=== PATIENT | female | born 1960 | race Caucasian/White ===

== ENCOUNTER → 2023-11-08 15:22 | Outpatient (REF) | payer OTHER, SELFPAY | LOC: WDC 15:22 | PROVIDERS: ATTENDING PHYSICIAN Physician Assistant Medical; FAMILY PHYSICIAN Internal Medicine | DX: Z12.31 Encounter for screening mammogram for malignant neoplasm of breast (principal) | CPT/HCPCS: 77063; 77067 ==

== ENCOUNTER → 2023-11-16 10:02 | Outpatient (REF) | payer OTHER, SELFPAY | LOC: WDC 10:02 | PROVIDERS: ATTENDING PHYSICIAN Physician Assistant Medical; FAMILY PHYSICIAN Internal Medicine | DX: R92.8 Other abnormal and inconclusive findings on diagnostic imaging of breast (principal) | CPT/HCPCS: 76642 ==

== ENCOUNTER → 2023-11-18 07:42 | Outpatient (REF) | payer OTHER, SELFPAY ==
--- NOTE | 2023-11-18 11:31 | OID.BR.INTR ---
OID Breast Navigator - Initial
- -
Did not meet patient at time of biopsy. Will follow up per protocol.
== END ==
LOC: WDC 07:42
PROVIDERS: ATTENDING PHYSICIAN Physician Assistant Medical
DX: N63.11 Unspecified lump in the right breast, upper outer quadrant (principal)
CPT/HCPCS: 88305; 19083; 77065; 88341; 88342; 88360; A4648

== ENCOUNTER → 2023-12-09 08:35 | Outpatient (REF) | payer OTHER, SELFPAY | LOC: WDC 08:35 | PROVIDERS: ATTENDING PHYSICIAN Surgery | DX: C50.411 Malignant neoplasm of upper-outer quadrant of right female breast (principal) | CPT/HCPCS: 19285; 38792; 76942; 77065; A4648; A9541 ==

== ENCOUNTER 2023-12-10 06:11 | Day surgery (SDC) | payer OTHER, SELFPAY ==
[2023-12-07 13:14] VITALS: BMI 32.1
[2023-12-07 13:55] LABS: Prealbumin (Transthyretin) 25.1 mg/dl (17.6-36.0)
[2023-12-10] VITALS (7 sets, daily range): BP systolic 83–125; BP diastolic 46–77; BMI 32.1
[2023-12-10] MEDS: TYLENOL 1000 MG PO (07:18)
[2023-12-10 07:21] LABS: Glucose - Point of Care 94 mg/dl (70-99)
[2023-12-10] MEDS: NORMOSOL-R 1000 IV (07:21)
[2023-12-10 07:41] LABS: Hematocrit 35.9 % (37.0-47.0); Hemoglobin 11.7 g/dL (12.0-16.0); Mean Corp Hgb Conc. 32.6 g/dL (33.0-37.0); Mean Corpuscular Hgb 29.3 pg (27.0-31.0); Mean Corpuscular Volume 89.8 fL (81.0-99.0); Mean Platelet Volume 9.5 fL (7.4-10.4); Platelet Count 297 10^3/uL (130-400); Red Cell Dist. Width 13.7 % (11.5-14.5); White Blood Cell Count 9.4 10^3/uL (4.8-10.8)
[2023-12-10 08:02] LABS: ALT (SGPT) 27 U/L (0-35); AST (SGOT) 27 U/L (14-36); Albumin 4.2 g/dl (3.5-5.0); Alkaline Phosphatase 115 U/L (38-126); Blood Urea Nitrogen 19 mg/dl (7-17); Calcium 9.6 mg/dl (8.4-10.2); Carbon Dioxide 25 mmol/L (22-30); Chloride 108 mmol/L (98-107); Estimated Creatinine Clearance 105 ml/min; Glucose 87 mg/dl (70-99); Potassium 4.7 mmol/L (3.5-5.1); Sodium 141 mmol/L (135-145); Total Bilirubin 0.3 mg/dl (0.2-1.3); Total Protein 7.2 g/dl (6.3-8.2); eGFR > 60.00
[2023-12-10 08:18] LABS: Vitamin D, 25-OH*** 90.9 ng/mL (30-80)
--- NOTE | 2023-12-10 09:37 | W.IMMPOSTOP ---
Surgical Immed Post Op Note
-
Primary Surgeon: Chandana
Assisting Surgeon: None
Pre-op Diagnosis: Right breast ca
Post-op Diagnosis: Same
Procedure Performed: Right localized lumpectomy, sentinel lymph node mapping and biopsy
Anesthesia Type: TIVA
Specimen / Cultures: Right lumpectomy, sentinel node, margins
Estimated Blood Loss: 4cc
Complications: None
Operative Findings: Neg node on frozen; mass clip and reflector in specimen
== END 2023-12-10 11:05 | disposition home or self-care (01) ==
LOC: SDS 06:11
PROVIDERS: ATTENDING PHYSICIAN Surgery; FAMILY PHYSICIAN Internal Medicine
DX: C50.411 Malignant neoplasm of upper-outer quadrant of right female breast (principal); N60.21 Fibroadenosis of right breast; Z17.0 Estrogen receptor positive status [ER+]
CPT/HCPCS: 38525; 19301; 88305; 88307; 88332; 36415; 76098; 80053; 82306; 82962; 84134; 85027; 88331; 88342; 93005; A4648

== ENCOUNTER 2024-01-12 14:13 | Emergency (ER) | payer OTHER, SELFPAY ==
[2024-01-12 14:16] VITALS: BMI 31.7
[2024-01-12 14:25] VITALS: BP 112/63
--- NOTE | 2024-01-12 14:25 | ED.GENMED ---
History of Present Illness
General
Chief Complaint: Abdominal Symptoms
Source: patient and ambulance crew
Exam Limitations: none
Time Seen by Provider: 01/12/24 14:24
Nursing documentation reviewed up to this point in time: agreed with
History of Present Illness
History of Present Illness:
63-year-old female with history of HTN, GERD, NIDDM, anxiety/depression presents for sudden onset of upper abdominal cramps, nausea starting 2-1/2 hours ago at work. She had 5 episodes of diarrhea. EMS was called but after the diarrhea she felt
much better and she was going to refuse coming to the emergency room but when EMS arrived, they found her clammy and pale and on their arrival her blood pressure was 87/49 then 79/52, improved greatly after IVF's. She was given Zofran 4 mg IV en
route.
She arrives stating her abdominal pains are completely gone and she still feels a little nauseous. She denies fever or chills. No recent travel. No recent antibiotic use. No known sick contacts.
Diagnosed with stage I breast cancer on 12/10/2023, had a lumpectomy and 1 lymph node removed.
Past History
Past History
ED Past Medical History: Cancer (Recently diagnosed with stage I breast cancer.)
ED Past Surgical History: Gynecological (Lumpectomy right breast, 1 lymph node removed)
Social History
Tobacco: Smoker (Occasionally)
Alcohol: None
Personal: Single
Living: alone
Employment: Employed
Review of Systems
Review of Systems
Allergies reviewed?: Yes
All Other Systems: ROS reviewed and negative except as documented in HPI and ROS
Constitutional: Denies fever or chills
Respiratory: Denies trouble breathing
Cardiac: Denies chest pain or syncope
ABD/GI: Reports abdominal pain, nausea and diarrhea; Denies vomiting, bloody stools or black stools
: Denies dysuria, frequency, difficulty voiding or urgency
Musculoskeletal: Reports no symptoms
Skin: Reports no symptoms
Neurological: Reports no symptoms
Phy Exam
Physical Exam
Physical Exam:
GENERAL: No acute distress. A&Ox3.
CONSTITUTIONAL: Afebrile.
EYES: clear, conjunctivae normal
ENMT: moist mucus membranes, Pharynx nl
RESPIRATORY: Regular respirations, nonlabored, lungs clear.
CARDIOVASCULAR: Regular rate and rhythm, no murmurs, no rubs.
GI: Soft, generally tender, normal BS
MUSCULOSKELETAL: Moves with ease. Well perfused.
SKIN: Warm, dry, pink
PSYCH: Normal mood and affect. Well kept, interactive and appropriate
NEUROLOGIC: Awake, alert and oriented. No focal neurological deficits
Course
Orders/Labs/Results
Orders:
Orders
01/12/24 14:16
IV Insert/Care/Rem.- Treatment PRN
01/12/24 14:23
Complete Blood Count/With Diff Urgent
Comprehensive Metabolic Panel Urgent
Lipase Urgent
01/12/24 15:05
0.9% Sodium Chloride 1000 ml [Nss] 1,000 ml IV BOLUS
01/12/24 15:13
Ondansetron Injectable [Zofran] 4 mg IV NOW STA
01/12/24 15:14
CT Abd/Pel (IV only)-DH only Urgent
Comment:
Reason For Exam: Abdominal cramps, n/v,d
01/12/24 15:17
COVID-19 Antigen Urgent
Source: Nasal Swab
01/12/24 16:47
Urinalysis Reflex To Culture Urgent
Date Specimen was Collected: 01/12/24
Time Specimen was Collected: 16:18
Urine Microscopic Reflex Cult Urgent
01/12/24 17:46
Dicyclomine [Bentyl] 20 mg PO NOW STA
Abnormal Lab Results
01/12/24 01/12/24
14:23 16:47
WBC 23.3 H 10^3/uL
(4.8-10.8)
MCHC 32.9 L g/dL
(33.0-37.0)
Abs Immat Gran (auto) 0.1 H 10^3/uL
(0-0.05)
Absolute Neuts (auto) 19.5 H 10^3/uL
(1.4-6.5)
Absolute Monos (auto) 1.8 H 10^3/uL
(0.1-0.6)
Immature Gran % 0.6 H %
(0-0.5)
Neutrophils % 83.2 H %
(42.2-75.2)
Lymphocytes % 7.2 L %
(20.5-51.1)
BUN 36 H mg/dl
(7-17)
Glucose 110 H mg/dl
(70-99)
Lipase 305 H U/L
(23-300)
Urine Albumin (Reflex) 1+ A
(Neg - Trace)
01/12/24 14:23
01/12/24 14:23
Vital Signs
Initial and Last Documented VS:
Initial Vital Signs
Temp
98.1 F
01/12/24 14:16
Last Documented Vital Signs
Temp Pulse Resp BP Pulse Ox
98.1 F 95 16 114/83 98
01/12/24 14:16 01/12/24 18:04 01/12/24 18:04 01/12/24 18:04 01/12/24 18:04
MDM/Problems Addressed
Differential Diagnosis Includes:
Gastroenteritis viral vs bacterial
MDM/Problems Addressed:
63-year-old female with history of HTN, GERD, NIDDM, anxiety/depression presents for sudden onset of upper abdominal cramps, nausea starting 2-1/2 hours ago at work. She had 5 episodes of diarrhea. EMS was called but after the diarrhea she felt
much better and she was going to refuse coming to the emergency room but when EMS arrived, they found her clammy and pale and on their arrival her blood pressure was 87/49 then 79/52, improved greatly after IVF's. She was given Zofran 4 mg IV en
route.
She arrives stating her abdominal pains are completely gone and she still feels a little nauseous. She denies fever or chills. No recent travel. No recent antibiotic use. No known sick contacts.
Diagnosed with stage I breast cancer on 12/10/2023, had a lumpectomy and 1 lymph node removed.
Afebrile, NAD, VSS
2:45 PM:
CBC: WBC 23.3 most likely reactive
CMP: BUN 36, IV fluids ordered. Otherwise normal
Lipase: No significant elevation
3:10 p.m.
In to re evaluate pt. after taking a drink of water, abdominal cramps started again. Pt requesting a covid test and something for nausea.
CT abd/pelvis w IV only contrast pending
5:30 PM:
UA negative
CT abdomen pelvis with IV only contrast: Radiology report read: No acute finding
Discharge dx: dehydration, diarrhea, gastroenteritis
Patient has had no diarrhea since arrival. She is tolerating p.o. fluids.
Plan: Discharge w rx for Zofran, Bentyl, return instructions discussed.
F/U w PCP if not 100% better Wednesday (5 days)
*Critical Care Note
Total Time (30-74mins, 75-104mins- exclusive of procedures): Not Applicable
ED Attending Note
-
Portions of this chart may have been created with voice recognition software.� Occasional wrong word or��sound alike� substitutions may have occurred due to the inherent limitations of voice recognition software.
Discharge Plan
Departure
Patient Disposition: Home (Routine Discharge)
Date of Disposition: 01/12/24
Time of Disposition: 17:59
Patient with high blood pressure during this ER visit?: No
Condition: Good
Discharge Problem:
Gastroenteritis
Instructions: Diarrhea in teens and adults, Viral gastroenteritis in adults, Dehydration, Adult (DC), Abdominal Pain
Prescriptions:
New
dicyclomine 20 mg tablet
20 mg PO QID PRN (Reason: stomach cramps) Qty: 20 0RF
ondansetron 4 mg tablet,disintegrating
4 mg PO Q8H PRN (Reason: nausea and vomiting) 4 Days Qty: 14 0RF
No Action
metoprolol tartrate 100 MG tablet
100 mg PO DAILY
venlafaxine 150 MG capsule,extended release 24hr
150 mg PO DAILY
bupropion HCl 150 MG tablet extended release 24 hr
150 mg PO DAILY
ergocalciferol (vitamin D2) 50,000 UNITS capsule
1 cap PO WEEKLY
ibuprofen 800 mg Tablet
800 mg PO BID
amlodipine-benazepril 5-20 mg Capsule
1 cap PO DAILY
metformin 500 mg Tablet Extended Release 24 Hr
500 mg PO DAILY
Ozempic 2 mg/dose (8 mg/3 mL) Pen Injector
2 mg SC QWEEK
acetaminophen 500 MG tablet
1,000 mg PO Q6H
Rx Instructions:
Do not exceed >4000 mg daily.
omeprazole 40 mg Capsule,Delayed Release(Dr/Ec)
40 mg PO DAILY
Referrals:
Traci Murphy, [Family Provider] - Follow up in 5-7 days
Activity Restrictions/Additional Instructions:
As we discussed, you are dehydrated, drink at least eight 8 ounce glasses of water/fluid daily
I sent a prescription to your pharmacy for Bentyl for abdominal cramps, as well as Zofran to use as needed for nausea.
See your doctor in 5 to 7 days if you are not 100% better by then
Return here over the weekend if you develop fever above 100.5 that is not relieved with Tylenol or ibuprofen, worsening abdominal pains, worsening diarrhea, bloody diarrhea, vomiting or feeling sicker in any way.
Interventions
Interventions:
*Risk Screen - Suicide Last Done: 01/12/24 14:16
*General Assessment Last Done: 01/12/24 14:16
*Neglect/Abuse Screening Last Done: 01/12/24 14:16
ED- Fall Risk Assessment Last Done: 01/12/24 18:13
*ED COVID-19 Vaccine History Last Done: 01/12/24 14:16
*Nursing Disposition Last Done: 01/12/24 18:13
RS-Tjumfs-Pvrinpfzpt Assessment Last Done: 01/12/24 14:16
Discharge Date and Time
Discharge Date/Time: 01/12/24 18:13
Print Language: PORTUGUESE
[2024-01-12 14:47] LABS: ALT (SGPT) 33 U/L (0-35); AST (SGOT) 30 U/L (14-36); Albumin 4.6 g/dl (3.5-5.0); Alkaline Phosphatase 100 U/L (38-126); Blood Urea Nitrogen 36 mg/dl (7-17); Calcium 9.4 mg/dl (8.4-10.2); Carbon Dioxide 26 mmol/L (22-30); Chloride 107 mmol/L (98-107); Estimated Creatinine Clearance 96 ml/min; Glucose 110 mg/dl (70-99); Lipase 305 U/L (23-300); Potassium 4.1 mmol/L (3.5-5.1); Sodium 141 mmol/L (135-145); Total Bilirubin 0.2 mg/dl (0.2-1.3); Total Protein 7.4 g/dl (6.3-8.2); eGFR > 60.00
[2024-01-12 14:48] LABS: % Basophils 0.3 % (0-2); % Eosinophils 1.1 % (0-6); % Immature Granulocytes 0.6 % (0-0.5); % Lymphocytes 7.2 % (20.5-51.1); % Monocytes 7.6 % (1.7-9.3); % Neutrophils 83.2 % (42.2-75.2); Absolute Basophils 0.1 10^3/uL (0-0.2); Absolute Eosinophils 0.3 10^3/uL (0-0.7); Absolute Immature Granulocytes 0.1 10^3/uL (0-0.05); Absolute Lymphocytes 1.7 10^3/uL (1.2-3.4); Absolute Monocytes 1.8 10^3/uL (0.1-0.6); Absolute Neutrophils 19.5 10^3/uL (1.4-6.5); Hematocrit 39.2 % (37.0-47.0); Hemoglobin 12.9 g/dL (12.0-16.0); Mean Corp Hgb Conc. 32.9 g/dL (33.0-37.0); Mean Corpuscular Hgb 29.3 pg (27.0-31.0); Mean Corpuscular Volume 88.9 fL (81.0-99.0); Mean Platelet Volume 9.7 fL (7.4-10.4); Nucleated Red Blood Cells % 0 %; Platelet Count 364 10^3/uL (130-400); Red Blood Cell Count 4.41 10^6/uL (4.20-5.40); Red Cell Dist. Width 13.8 % (11.5-14.5); White Blood Cell Count 23.3 10^3/uL (4.8-10.8)
[2024-01-12] MEDS: ZOFRAN 4 MG IV (15:17)
[2024-01-12] MEDS: NSS 1000 IV (15:17)
[2024-01-12 15:42] LABS: COVID-19 Antigen Negative (Negative)
[2024-01-12 16:52] LABS: Urine Albumin 1+ (Neg - Trace); Urine Bilirubin Negative (Negative); Urine Character Clear (Clear); Urine Color Yellow; Urine Glucose Negative (Negative); Urine Ketone Negative (Negative); Urine Leukocyte Negative (Negative); Urine Nitrite Negative (Negative); Urine Occult Blood Negative (Negative); Urine Specific Gravity 1.015 (<1.030); Urine Urobilinogen Negative (Neg - 1+)
[2024-01-12 17:01] LABS: Urine Red Blood Cell 0-2 /HPF (0-2); Urine White Cell 0-2 /HPF (0-5)
[2024-01-12] MEDS: BENTYL 20 MG PO (18:03)
[2024-01-12 18:04] VITALS: BP 114/83
== END 2024-01-12 18:13 | disposition home or self-care (01) ==
LOC: EMR 14:13
PROVIDERS: Registered Nurse; EMERGENCY PHYSICIAN Emergency Medicine; FAMILY PHYSICIAN Family Medicine
DX: K52.9 Noninfective gastroenteritis and colitis, unspecified (principal); I10 Essential (primary) hypertension; E11.9 Type 2 diabetes mellitus without complications; K21.9 Gastro-esophageal reflux disease without esophagitis; F17.200 Nicotine dependence, unspecified, uncomplicated; F41.9 Anxiety disorder, unspecified; Z11.52 Encounter for screening for COVID-19
CPT/HCPCS: 99285; 96374; 96361; 74177; 80053; 81003; 81015; 83690; 85025; 87811; Q9967

== ENCOUNTER → 2024-04-17 11:26 | Outpatient (REF) | payer OTHER, SELFPAY | LOC: RAD 11:26 | PROVIDERS: ATTENDING PHYSICIAN Obstetrics & Gynecology Gynecology; FAMILY PHYSICIAN Physician Assistant Medical | DX: N83.202 Unspecified ovarian cyst, left side (principal) | CPT/HCPCS: 76830; 76856 ==

== ENCOUNTER → 2024-07-04 14:12 | Outpatient (REF) | payer OTHER, SELFPAY | LOC: HWRAD 14:12 | PROVIDERS: ATTENDING PHYSICIAN Internal Medicine Hematology & Oncology; FAMILY PHYSICIAN Physician Assistant Medical | DX: C50.411 Malignant neoplasm of upper-outer quadrant of right female breast (principal); M89.49 Other hypertrophic osteoarthropathy, multiple sites | CPT/HCPCS: 77080 ==

== ENCOUNTER → 2024-09-12 07:17 | Outpatient (REF) | payer OTHER, SELFPAY | LOC: HWRAD 07:17 | PROVIDERS: ATTENDING PHYSICIAN Physician Assistant Medical | DX: R22.1 Localized swelling, mass and lump, neck (principal) | CPT/HCPCS: 76536 ==

== ENCOUNTER 2024-09-27 09:38 | Emergency (ER) | payer OTHER, SELFPAY ==
[2024-09-27] VITALS (7 sets, daily range): BP systolic 114–131; BP diastolic 54–88; BMI 31.4
--- NOTE | 2024-09-27 09:43 | ED.GENMED ---
History of Present Illness
<LANCE Croft - Last Filed: 09/28/24 20:18>
General
Chief Complaint: Abdominal Symptoms
Source: patient and ambulance crew
Exam Limitations: none
Time Seen by Provider: 09/27/24 09:43
Nursing documentation reviewed up to this point in time: agreed with
History of Present Illness
History of Present Illness:
Patient is a 64-year-old female with past medical history of breast cancer , htn, niddm who presents to the ER for evaluation. Patient started last evening with an upset stomach and vomited at least 3 times and has had constant diarrhea. She did
call EMS. She does feel very dehydrated. She complains about abdominal cramping but denies any abdominal pain.
She does live alone.
She does not drink alcohol.
Past History
<LANCE Croft - Last Filed: 09/28/24 20:18>
Past History
ED Past Medical History: Cancer (Recently diagnosed with stage I breast cancer.)
ED Past Surgical History: Gynecological (Lumpectomy right breast, 1 lymph node removed)
Social History
Tobacco: Smoker (Occasionally)
Alcohol: None
Personal: Single
Living: alone
Employment: Employed
Review of Systems
<LANCE Croft - Last Filed: 09/28/24 20:18>
Review of Systems
Allergies reviewed?: Yes
All Other Systems: ROS reviewed and negative except as documented in HPI and ROS
Constitutional: Denies fever, fatigue or chills
EENT: Reports no symptoms
Respiratory: Reports no symptoms
Cardiac: Reports no symptoms
ABD/GI: Reports nausea, vomiting and diarrhea; Denies abdominal pain
: Reports no symptoms; Denies flank pain, urgency or discharge
Musculoskeletal: Reports no symptoms
Skin: Reports no symptoms
Neurological: Reports no symptoms
Psychiatric: Reports no symptoms
Phy Exam
<LANCE Croft - Last Filed: 09/28/24 20:18>
General Physical Exam
General Presentation: no apparent distress
General age: appears stated age
General Skin: warm and dry
General Habitus: normal
General Mental: alert
General Hydration: dry mucous membranes
Cardiovascular Exam
Cardiovascular Exam: tachycardia
Pulmonary Exam
Pulmonary Exam: lungs clear and no respiratory distress
Gastrointestinal Exam
Gastrointestinal Exam: non tender and soft
Neurological Exam
Neurological Exam: alert and oriented x3
Musculoskeletal Exam
Musculoskeletal Exam: full ROM
Skin Exam
Skin Exam: normal color and warm/dry
Psychiatric Exam
Psychiatric Exam: normal mood/affect
Course
<LANCE Croft - Last Filed: 09/28/24 20:18>
Orders/Labs/Results
Orders:
Orders
09/27/24 09:43
IV Insert/Care/Rem.- Treatment PRN
0.9% Sodium Chloride 1000 ml [Nss] 1,000 ml IV BOLUS
Dicyclomine HCl [Bentyl] 20 mg IM NOW STA
Ondansetron Injectable [Zofran] 4 mg IV NOW STA
09/27/24 09:44
Electrocardiogram (*1) Urgent
Reason for Study: Tachycardia
EKG- Treatment ONCE
09/27/24 09:51
COVID-19 Antigen Urgent
Source: Nasal Swab
Complete Blood Count/With Diff Urgent
Comprehensive Metabolic Panel Urgent
TSH Reflex To Free T4 Urgent
Influenza A+B Rapid Molecular Urgent
ANNA Source: Nasal Swab
Specimen Description:
09/27/24 11:11
0.9% Sodium Chloride 1000 ml [Nss] 1,000 ml IV BOLUS
Ketorolac [Toradol] 15 mg IV NOW STA
09/27/24 12:02
Urinalysis Reflex To Culture Urgent
Date Specimen was Collected: 09/27/24
Time Specimen was Collected: 11:53
Urine Microscopic Reflex Cult Urgent
09/27/24 13:10
Acetaminophen [Tylenol] 1,000 mg PO NOW STA
09/27/24 13:11
Acetaminophen [Tylenol] 1,000 mg .ROUTE .STK-MED ONE
09/27/24 14:49
Ondansetron Injectable [Zofran] 4 mg .ROUTE .STK-MED ONE
09/27/24 14:52
Ondansetron Injectable [Zofran] 4 mg IV NOW STA
Abnormal Lab Results
09/27/24 09/27/24
09:51 12:02
WBC 12.5 H 10^3/uL
(4.8-10.8)
Absolute Neuts (auto) 11.5 H 10^3/uL
(1.4-6.5)
Absolute Lymphs (auto) 0.5 L 10^3/uL
(1.2-3.4)
Neutrophils % 92.1 H %
(42.2-75.2)
Lymphocytes % 4.3 L %
(20.5-51.1)
BUN 29 H mg/dl
(7-17)
Creatinine 0.5 L mg/dL
(0.6-1.0)
Glucose 141 H mg/dl
(70-99)
Ur Occult Blood Reflex 1+ A
(Negative)
Urine RBC 7-10 A /HPF
(0-2)
Urine Bacteria (Reflex) Few A
(Negative)
Urine Albumin (Reflex) 1+ A
(Neg - Trace)
09/27/24 09:51
09/27/24 09:51
Vital Signs
Initial and Last Documented VS:
Initial Vital Signs
Temp Pulse Resp BP Pulse Ox
98.9 F 130 20 114/76 97
09/27/24 09:39 09/27/24 09:39 09/27/24 09:39 09/27/24 09:39 09/27/24 09:39
Last Documented Vital Signs
Temp Pulse Resp BP Pulse Ox
99.7 F 115 19 131/74 93
09/27/24 13:14 09/27/24 14:30 09/27/24 14:30 09/27/24 15:04 09/27/24 11:14
C D Stripper consulted with Physician
C D Stripper consulted with physician?: Yes
Name of Physician Consulted: Becky
Desirelt;Ayaan Pena, - Last Filed: 09/27/24 13:12>
Orders/Labs/Results
Orders:
Orders
09/27/24 09:43
IV Insert/Care/Rem.- Treatment PRN
0.9% Sodium Chloride 1000 ml [Nss] 1,000 ml IV BOLUS
Dicyclomine HCl [Bentyl] 20 mg IM NOW STA
Ondansetron Injectable [Zofran] 4 mg IV NOW STA
09/27/24 09:44
Electrocardiogram (*1) Urgent
Reason for Study: Tachycardia
EKG- Treatment ONCE
09/27/24 09:51
COVID-19 Antigen Urgent
Source: Nasal Swab
Complete Blood Count/With Diff Urgent
Comprehensive Metabolic Panel Urgent
TSH Reflex To Free T4 Urgent
Influenza A+B Rapid Molecular Urgent
ANNA Source: Nasal Swab
Specimen Description:
09/27/24 11:11
0.9% Sodium Chloride 1000 ml [Nss] 1,000 ml IV BOLUS
Ketorolac [Toradol] 15 mg IV NOW STA
09/27/24 12:02
Urinalysis Reflex To Culture Urgent
Date Specimen was Collected: 09/27/24
Time Specimen was Collected: 11:53
Urine Microscopic Reflex Cult Urgent
09/27/24 13:10
Acetaminophen [Tylenol] 1,000 mg PO NOW STA
09/27/24 13:11
Acetaminophen [Tylenol] 1,000 mg .ROUTE .STK-MED ONE
09/27/24 14:49
Ondansetron Injectable [Zofran] 4 mg .ROUTE .STK-MED ONE
09/27/24 14:52
Ondansetron Injectable [Zofran] 4 mg IV NOW STA
Abnormal Lab Results
09/27/24 09/27/24
09:51 12:02
WBC 12.5 H 10^3/uL
(4.8-10.8)
Absolute Neuts (auto) 11.5 H 10^3/uL
(1.4-6.5)
Absolute Lymphs (auto) 0.5 L 10^3/uL
(1.2-3.4)
Neutrophils % 92.1 H %
(42.2-75.2)
Lymphocytes % 4.3 L %
(20.5-51.1)
BUN 29 H mg/dl
(7-17)
Creatinine 0.5 L mg/dL
(0.6-1.0)
Glucose 141 H mg/dl
(70-99)
Ur Occult Blood Reflex 1+ A
(Negative)
Urine RBC 7-10 A /HPF
(0-2)
Urine Bacteria (Reflex) Few A
(Negative)
Urine Albumin (Reflex) 1+ A
(Neg - Trace)
09/27/24 09:51
09/27/24 09:51
Vital Signs
Initial and Last Documented VS:
Initial Vital Signs
Temp Pulse Resp BP Pulse Ox
98.9 F 130 20 114/76 97
09/27/24 09:39 09/27/24 09:39 09/27/24 09:39 09/27/24 09:39 09/27/24 09:39
Last Documented Vital Signs
Temp Pulse Resp BP Pulse Ox
99.7 F 115 19 131/74 93
09/27/24 13:14 09/27/24 14:30 09/27/24 14:30 09/27/24 15:04 09/27/24 11:14
<LANCE Croft - Last Filed: 09/28/24 20:18>
MDM/Problems Addressed
MDM/Problems Addressed:
Patient is a 64-year-old female who presented with nausea vomiting diarrhea mild abdominal cramping since last night. Patient reports multiple diarrhea episodes she does feel dehydrated on arrival. She presents tachycardic however no acute
distress afebrile. White count very minimally elevated stable HGB. BUN was elevated at 29 with a normal creatinine. Abdomen soft nontender.
Patient received fluids Bentyl and Zofran here feeling better drinking fluids now however arrived tachycardic and despite fluids is persistently tachycardic.
13.10: Patient repeat temp 99.9. Patient was eval by ED physician who examined patient likely viral syndrome and dehydration. Will medicate for Tylenol increased temperature may also be contributing to elevated heart rate.
Patient however is overall nontoxic-appearing and feeling better has tolerated fluids.
<LANCE Croft - Last Filed: 09/28/24 20:18>
*Critical Care Note
Total Time (30-74mins, 75-104mins- exclusive of procedures): Not Applicable
ED Attending Note
<LANCE Croft - Last Filed: 09/28/24 20:18>
-
Portions of this chart may have been created with voice recognition software.� Occasional wrong word or��sound alike� substitutions may have occurred due to the inherent limitations of voice recognition software.
<Ayaan Pena DO - Last Filed: 09/27/24 13:12>
ED Attending Note
Patient seen and examined by attending physician: Yes
I performed the substantive portion of visit, reviewed & personally made and approve the management plan that is documented in note by myself or NEYMAR.: Yes
ED Attending Note:
Patient presents complaining of nausea vomiting diarrhea for the past 24 hours. She has abdominal cramping but no reproducible abdominal pain. No known fever. Patient feels generally weak.
General: Awake, Alert, Oriented X3. No acute distress.
Vitals: unremarkable
Head: Atraumatic
Eyes: Pupils equal, EOMI
Throat: Airway intact, no exudates, dry mucosa
Neck: Trachea midline
Lungs: Clear and equal b/l
Heart: Regular rate, no murmurs
Abd: Soft, Nontender, No pulsatile mass
Neuro: Nonfocal
Skin: Warm, dry, no rash
Extremities: pulses equal b/l, no edema
Patient presents with nausea vomiting diarrhea and crampy abdominal pain. Her abdominal exam is actually benign to palpation. Labs show minimally elevated white blood cell count and prerenal azotemia. Clinically the patient looks quite dry.
Agree with IV fluid, antipyretics and other symptomatic care.
Discharge Plan
Departure
Patient Disposition: Home (Routine Discharge)
Date of Disposition: 09/27/24
Time of Disposition: 14:51
Patient with high blood pressure during this ER visit?: No
Condition: Fair
Covid-19: Not Applicable
Discharge Problem:
Nausea & vomiting, Diarrhea
Instructions: Diarrhea in teens and adults, Clear Liquid Diet, [place] Diet, Nausea and Vomiting, Adult (DC)
Prescriptions:
New
ondansetron HCl 4 mg tablet
4 mg PO Q8H PRN (Reason: nausea and vomiting) Qty: 10 0RF
No Action
venlafaxine 150 MG capsule,extended release 24hr
150 mg PO DAILY
bupropion HCl 150 MG tablet extended release 24 hr
150 mg PO DAILY
ergocalciferol (vitamin D2) 50,000 UNITS capsule
1 cap PO WEEKLY
ibuprofen 800 mg Tablet
800 mg PO BID
amlodipine-benazepril 5-20 mg Capsule
1 cap PO DAILY
metformin 500 mg Tablet Extended Release 24 Hr
500 mg PO DAILY
Ozempic 2 mg/dose (8 mg/3 mL) Pen Injector
2 mg SC QWEEK
acetaminophen 500 MG tablet
1,000 mg PO Q6H
Rx Instructions:
Do not exceed >4000 mg daily.
omeprazole 40 mg Capsule,Delayed Release(Dr/Ec)
40 mg PO DAILY
dicyclomine 20 mg tablet
20 mg PO QID PRN (Reason: stomach cramps) Qty: 20 0RF
ondansetron 4 mg tablet,disintegrating
4 mg PO Q8H PRN (Reason: nausea and vomiting) 4 Days Qty: 14 0RF
metoprolol succinate [Toprol XL] 100 mg Tablet Extended Release 24 Hr
100 mg PO DAILY
Referrals:
Claudio Jackson PA-C [Family Provider] -
Activity Restrictions/Additional Instructions:
As discussed a prescription for Zofran, nausea medicine was sent to your pharmacy take as directed. Clear fluids for the next 24 hours follow-up bland solid foods. Please follow with your family doctor the next of days for reevaluation. Also
please follow-up with your family doctor for repeat urinalysis as there was trace amount of blood in your urine. Return if any worsening of symptoms.
Interventions
Interventions:
*Risk Screen - Suicide Last Done: 09/27/24 09:39
*General Assessment Last Done: 09/27/24 09:39
*Neglect/Abuse Screening Last Done: 09/27/24 09:39
*ED- Fall Risk Assessment Last Done: 09/27/24 11:50
*ED COVID-19 Vaccine History Last Done: 09/27/24 09:44
*Nursing Disposition Last Done: 09/27/24 15:07
RZ-Ujlxfs-Iofxqdjegq Assessment Last Done: 09/27/24 09:44
Discharge Date and Time
Discharge Date/Time: 09/27/24 15:12
Print Language: [place]
[2024-09-27] MEDS: ZOFRAN 4 MG IV ×2 (09:59→14:52)
[2024-09-27] MEDS: BENTYL 20 MG IM (10:00)
[2024-09-27] MEDS: NSS 1000 IV ×2 (10:00→11:44)
[2024-09-27 10:06] LABS: % Basophils 0.1 % (0-2); % Eosinophils 0.2 % (0-6); % Immature Granulocytes 0.3 % (0-0.5); % Lymphocytes 4.3 % (20.5-51.1); % Neutrophils 92.1 % (42.2-75.2); Absolute Lymphocytes 0.5 10^3/uL (1.2-3.4); Absolute Monocytes 0.4 10^3/uL (0.1-0.6); Absolute Neutrophils 11.5 10^3/uL (1.4-6.5); Hemoglobin 12.6 g/dL (12.0-16.0); Mean Corp Hgb Conc. 33.2 g/dL (33.0-37.0); Mean Corpuscular Hgb 28.3 pg (27.0-31.0); Mean Corpuscular Volume 85.2 fL (81.0-99.0); Mean Platelet Volume 8.9 fL (7.4-10.4); Nucleated Red Blood Cells % 0 %; Platelet Count 351 10^3/uL (130-400); Red Blood Cell Count 4.46 10^6/uL (4.20-5.40); Red Cell Dist. Width 13.9 % (11.5-14.5); White Blood Cell Count 12.5 10^3/uL (4.8-10.8)
[2024-09-27 10:16] LABS: ALT (SGPT) 29 U/L (0-35); AST (SGOT) 28 U/L (14-36); Albumin 4.3 g/dl (3.5-5.0); Alkaline Phosphatase 88 U/L (38-126); Blood Urea Nitrogen 29 mg/dl (7-17); Calcium 9.9 mg/dl (8.4-10.2); Carbon Dioxide 26 mmol/L (22-30); Chloride 107 mmol/L (98-107); Glucose 141 mg/dl (70-99); Potassium 4.2 mmol/L (3.5-5.1); Sodium 142 mmol/L (135-145); Total Bilirubin 0.6 mg/dl (0.2-1.3); Total Protein 7.7 g/dl (6.3-8.2); eGFR > 60.00
[2024-09-27 10:34] LABS: COVID-19 Antigen Negative (Negative)
[2024-09-27 10:55] LABS: TSH Reflex To Free T4 2.53 uIU/ml (0.47-4.68)
[2024-09-27] MEDS: TORADOL 15 MG IV (11:43)
[2024-09-27 12:36] LABS: Urine Albumin 1+ (Neg - Trace); Urine Bilirubin Negative (Negative); Urine Character Clear (Clear); Urine Color Yellow; Urine Glucose Negative (Negative); Urine Ketone Negative (Negative); Urine Leukocyte Negative (Negative); Urine Nitrite Negative (Negative); Urine Occult Blood 1+ (Negative); Urine Urobilinogen Negative (Neg - 1+); Urine pH 6.5 (5.0-9.0)
[2024-09-27] MEDS: TYLENOL 1000 MG PO (13:13)
[2024-09-27 13:57] LABS: Urine Mucus Few
[2024-09-27 13:58] LABS: Urine Bacteria Few (Negative); Urine White Cell 0-2 /HPF (0-5)
== END 2024-09-27 15:12 | disposition home or self-care (01) ==
LOC: EMR 09:38
PROVIDERS: Nurse Practitioner; EMERGENCY PHYSICIAN Emergency Medicine; FAMILY PHYSICIAN Physician Assistant Medical
DX: R11.2 Nausea with vomiting, unspecified (principal); R19.7 Diarrhea, unspecified; I10 Essential (primary) hypertension; E11.9 Type 2 diabetes mellitus without complications; F17.200 Nicotine dependence, unspecified, uncomplicated; Z85.3 Personal history of malignant neoplasm of breast
CPT/HCPCS: 99283; 96374; 96375; 96376; 96372; 96361; 80053; 81003; 81015; 84443; 85025; 87502; 87811; 93005

== ENCOUNTER → 2024-11-09 13:20 | Outpatient (REF) | payer OTHER, SELFPAY | LOC: WDC 13:20 | PROVIDERS: ATTENDING PHYSICIAN Nurse Practitioner Adult Health; FAMILY PHYSICIAN Physician Assistant Medical; REFERRING PHYSICIAN Surgery Plastic and Reconstructive Surgery | DX: Z12.31 Encounter for screening mammogram for malignant neoplasm of breast (principal) | CPT/HCPCS: 77063; 77067 ==

== ENCOUNTER → 2024-12-26 08:20 | Outpatient (REF) | payer OTHER, SELFPAY | LOC: WDC 08:20 | PROVIDERS: ATTENDING PHYSICIAN Physician Assistant Medical; REFERRING PHYSICIAN Obstetrics & Gynecology Gynecology | DX: D24.1 Benign neoplasm of right breast (principal); N63.13 Unspecified lump in the right breast, lower outer quadrant | CPT/HCPCS: 76642 ==

== ENCOUNTER → 2025-01-27 10:32 | Outpatient (REF) | payer OTHER, SELFPAY | LOC: PAVMRI 10:32 | PROVIDERS: ATTENDING PHYSICIAN Physician Assistant; FAMILY PHYSICIAN Physician Assistant Medical | DX: M54.12 Radiculopathy, cervical region (principal) | CPT/HCPCS: 72141 ==

== ENCOUNTER → 2025-05-21 10:30 | Outpatient (REF) | payer MEDICARE, OTHER, SELFPAY | LOC: RAD 10:30 | PROVIDERS: ATTENDING PHYSICIAN Obstetrics & Gynecology Gynecology; FAMILY PHYSICIAN Physician Assistant Medical | DX: N83.202 Unspecified ovarian cyst, left side (principal) | CPT/HCPCS: 76830; 76856 ==